=== PATIENT | female | born 1995 | race Caucasian/White ===

== ENCOUNTER 2017-01-16 16:40 | Emergency (ER) | payer OTHER ==
[2017-01-16 17:15] LABS: HEMOGLOBIN 12.8 gm/dl (12.3-15.3); RED BLOOD COUNT 4.53 M/UL (4.00-5.10); WHITE BLOOD COUNT 11.6 K/UL (4.5-11.0)
[2017-01-16 17:39] LABS: BUN/CREATININE RATIO 10 (0-10)
== END 2017-01-17 01:02 | disposition home or self-care (01) ==
LOC: ER1 16:40
PROVIDERS: Emergency Medicine
DX: T40.3X1A Poisoning by methadone, accidental (unintentional), initial encounter (principal); R00.0 Tachycardia, unspecified; F15.10 Other stimulant abuse, uncomplicated; N39.0 Urinary tract infection, site not specified; N76.0 Acute vaginitis; F17.200 Nicotine dependence, unspecified, uncomplicated; Z79.899 Other long term (current) drug therapy
CPT/HCPCS: 36415; 71010; 80053; 80307; 81001; 82550; 82553; 83874; 84443; 84484; 84703; 85025; 87077; 87086; 87186; 93005; 96361; 96365; 96375; 99284; G0480; J0696; J2405; J7030; J7050